=== PATIENT | male | born 1980 | race Caucasian/White ===

== ENCOUNTER 2024-05-10 16:47 | Emergency (ER) | payer OTHER, SELFPAY ==
[2024-05-10 16:51] VITALS: BP 138/105
[2024-05-10 17:17] LABS: % Basophils 0.5 % (0-2); % Eosinophils 0.1 % (0-6); % Immature Granulocytes 0.5 % (0-0.5); % Lymphocytes 11.4 % (20.5-51.1); % Monocytes 4.8 % (1.7-9.3); % Neutrophils 82.7 % (42.2-75.2); Absolute Basophils 0.1 10^3/uL (0-0.2); Absolute Immature Granulocytes 0.1 10^3/uL (0-0.05); Absolute Lymphocytes 1.3 10^3/uL (1.2-3.4); Absolute Monocytes 0.6 10^3/uL (0.1-0.6); Absolute Neutrophils 9.5 10^3/uL (1.4-6.5); Hematocrit 45.8 % (39.0-52.0); Hemoglobin 16.9 g/dL (13.0-18.0); Mean Corp Hgb Conc. 36.9 g/dL (33.0-37.0); Mean Corpuscular Hgb 32.9 pg (27.0-31.0); Mean Corpuscular Volume 89.1 fL (80.0-94.0); Mean Platelet Volume 9.4 fL (7.4-10.4); Nucleated Red Blood Cells % 0 % (-); Platelet Count 232 10^3/uL (130-400); Red Blood Cell Count 5.14 10^6/uL (4.70-6.10); Red Cell Dist. Width 11.6 % (11.5-14.5); White Blood Cell Count 11.5 10^3/uL (4.8-10.8)
[2024-05-10 17:34] LABS: ALT (SGPT) 21 U/L (0-50); AST (SGOT) 22 U/L (17-59); Albumin 5.3 g/dl (3.5-5.0); Alkaline Phosphatase 77 U/L (38-126); Blood Urea Nitrogen 10 mg/dl (9-20); Carbon Dioxide 27 mmol/L (22-30); Chloride 102 mmol/L (98-107); Glucose 105 mg/dl (70-99); Potassium 4.2 mmol/L (3.5-5.1); Sodium 140 mmol/L (135-145); Total Bilirubin 1.7 mg/dl (0.2-1.3); Total Protein 8.7 g/dl (6.3-8.2); eGFR > 60.00
--- NOTE | 2024-05-10 18:23 | ED.GENMED ---
History of Present Illness
General
Chief Complaint: Dizziness
Source: patient
Time Seen by Provider: 05/10/24 17:58
History of Present Illness
History of Present Illness:
44yoM with no significant past medical history presenting with his for evaluation of dizziness x 1 week. He reports mild dizziness that began a week ago which has acutely worsened since last night. He reports feeling like the room is spinning
when he puts his head backward or forward. The dizziness will gradually resolve when he puts his head back in neutral position. He states it feels like his eyes take a bit to refocus as well. He also endorses right ear fullness. He is experiencing
nausea but denies any vomiting. He has a history of similar symptoms in the past but nothing that has lasted this long before. He denies any headache, double vision, tinnitus, head trauma, vomiting. No recent head trauma or illnesses.
Phy Exam
Physical Exam
Physical Exam:
PERRL. EOMs intact without nystagmus. CN 2-12 grossly intact. 5/5 strength and gross sensation intact in all extremities. Normal finger to nose and heel to marshall bilaterally. Negative test of skew. +Difficulty with tandem gait.
General Physical Exam
General Presentation: well appearing and no apparent distress
General age: appears stated age
General Skin: warm and dry
General Habitus: normal
General Mental: alert
ENT Exam
ENT Exam: EOMI, TM's normal and normocephalic
Eye Exam
Eye Exam: PERRL and EOMI
Cardiovascular Exam
Cardiovascular Exam: regular rate/rhythm
Heart Sounds: normal
Pulmonary Exam
Pulmonary Exam: lungs clear, no respiratory distress, no rales, no crackles and no rhonchi
Neurological Exam
Neurological Exam: alert, no motor deficits, no sensory deficits and speech normal
Course
Orders/Labs/Results
Orders:
Orders
05/10/24 16:57
Electrocardiogram (*1) Urgent
Reason for Study: Vertigo / Dizzy
EKG- Treatment ONCE
05/10/24 17:08
Complete Blood Count/With Diff Urgent
Comprehensive Metabolic Panel Urgent
05/10/24 18:22
0.9% Sodium Chloride 1000 ml [Nss] 1,000 ml IV BOLUS
Meclizine [Antivert] 25 mg PO NOW STA
Ondansetron Injectable [Zofran] 4 mg IV NOW STA
05/10/24 18:23
CT Head W/o Iv Contrast Urgent
Comment:
Reason For Exam: Dizziness
05/10/24 19:51
Acetaminophen [Tylenol] 1,000 mg PO NOW STA
Abnormal Lab Results
05/10/24
17:08
WBC 11.5 H 10^3/uL
(4.8-10.8)
MCH 32.9 H pg
(27.0-31.0)
Abs Immat Gran (auto) 0.1 H 10^3/uL
(0-0.05)
Absolute Neuts (auto) 9.5 H 10^3/uL
(1.4-6.5)
Neutrophils % 82.7 H %
(42.2-75.2)
Lymphocytes % 11.4 L %
(20.5-51.1)
Glucose 105 H mg/dl
(70-99)
Total Bilirubin 1.7 H mg/dl
(0.2-1.3)
Total Protein 8.7 H g/dl
(6.3-8.2)
Albumin 5.3 H g/dl
(3.5-5.0)
05/10/24 17:08
05/10/24 17:08
Vital Signs
Initial and Last Documented VS:
Initial Vital Signs
Temp Pulse Resp BP Pulse Ox
97.7 F 78 18 138/105 99
05/10/24 16:51 05/10/24 16:51 05/10/24 16:51 05/10/24 16:51 05/10/24 16:51
Last Documented Vital Signs
Temp Pulse Resp BP Pulse Ox
97.7 F 71 20 142/88 97
05/10/24 16:51 05/10/24 20:46 05/10/24 20:46 05/10/24 20:46 05/10/24 20:46
MDM/Problems Addressed
Differential Diagnosis Includes:
44yoM here with dizziness. Mild x 1 week but symptoms worsened since yesterday. Described as the room spinning. Worse with certain head movements. Associated with nausea and R ear fullness. Hx of similar symptoms in the past. He is afebrile and
hemodynamically stable. He is well appearing in no distress. He had difficulty with tandem gait. Neuro exam otherwise non-focal. No nystagmus or ataxia present in extremities. Differential diagnosis includes but is not limited to: BPPV, vestibular
neuronitis, labyrinthitis, Meniere's, eustachian tube dysfunction, doubt acute CVA
Initial ED plan: Labs obtained and EKG obtained in triage. Labs overall unremarkable and EKG shows NSR without ischemic changes. Will obtain CT head. Meclizine, Zofran, and fluid bolus and reassess.
*EKG
Interpreted by ED Provider?: Yes
EKG Intrepretation Date: 05/10/24
Heart Rate: 65
Rate: normal
Rhythm: sinus
[place]: normal axis
Interval: normal interval
QRS Pattern: normal QRS
Ischemia: no ischemia
*Critical Care Note
Total Time (30-74mins, 75-104mins- exclusive of procedures): Not Applicable
Update Note
Update Note:
CT head negative for acute findings. Patient feeling significantly improved on reassessment. Doubt central vertigo given improvement in symptoms, positional symptoms, and lack of ataxia on exam. Patient stable for discharge. Scripts for meclizine
and Zofran provided. Advised PCP and ENT f/u. ED return precautions discussed. Patient expressed understanding and is agreeable to plan. Patient ambulated independently out of ED with a steady gait.
ED Attending Note
-
Portions of this chart may have been created with voice recognition software.� Occasional wrong word or��sound alike� substitutions may have occurred due to the inherent limitations of voice recognition software.
Discharge Plan
Departure
Patient Disposition: Home (Routine Discharge)
Date of Disposition: 05/10/24
Time of Disposition: 20:26
Patient with high blood pressure during this ER visit?: No
Discharge Problem:
Vertigo
Prescriptions:
New
meclizine 25 mg tablet
25 mg PO QID PRN (Reason: dizziness) Qty: 20 0RF
ondansetron HCl 4 mg tablet
4 mg PO Q6H PRN (Reason: nausea and vomiting) Qty: 20 0RF
Referrals:
NONE,* [Family Provider] -
Jocelyn Valente MD [Active] -
Activity Restrictions/Additional Instructions:
Take meclizine as needed for dizziness. Take Zofran as needed for nausea.
Please follow-up with your family doctor and ENT. Return to the ER with any new or worsening symptoms.
Interventions
Interventions:
*Risk Screen - Suicide Last Done: 05/10/24 16:51
*General Assessment Last Done: 05/10/24 16:56
*Neglect/Abuse Screening Last Done: 05/10/24 16:51
ED- Fall Risk Assessment Last Done: 05/10/24 18:56
*ED COVID-19 Vaccine History Last Done: 05/10/24 18:56
*Nursing Disposition Last Done: 05/10/24 20:51
ED- Neurological Assessment Last Done: 05/10/24 18:55
ED- Cardiac Assessment Last Done: 05/10/24 18:55
Discharge Date and Time
Discharge Date/Time: 05/10/24 20:51
Print Language: COMORAN
[2024-05-10] MEDS: ANTIVERT 25 MG PO (18:44)
[2024-05-10] MEDS: ZOFRAN 4 MG IV (18:49)
[2024-05-10] MEDS: NSS 1000 IV (18:50)
[2024-05-10] MEDS: TYLENOL 1000 MG PO (19:59)
[2024-05-10 20:46] VITALS: BP 142/88
== END 2024-05-10 20:51 | disposition home or self-care (01) ==
LOC: EMR 16:47
PROVIDERS: Emergency Medicine; EMERGENCY PHYSICIAN Emergency Medicine
DX: R42 Dizziness and giddiness (principal)
CPT/HCPCS: 99285; 96374; 96361; 70450; 80053; 85025; 93005